=== PATIENT | male | born 1975 ===

== ENCOUNTER 2023-12-02 08:23 | Outpatient (REF) | payer OTHER, SELFPAY | END 2023-12-02 08:24 | disposition home or self-care (01) | LOC: HO.SH 08:23 | PROVIDERS: Visit Provider Family Medicine | DX: Z01.118 Encounter for examination of ears and hearing with other abnormal findings (principal); H90.3 Sensorineural hearing loss, bilateral; H92.02 Otalgia, left ear | CPT/HCPCS: 92557; 92567 ==